=== PATIENT | male | born 1985 | race Caucasian/White ===

== ENCOUNTER 2017-03-29 20:39 | Emergency (ER) | payer SELFPAY ==
[2017-03-29 20:42] VITALS: BP 145/90; PULSE 103; RESP 20; TEMP 98.6; O2SAT 96
--- NOTE | 2017-03-29 22:03 | RADRPT ---
EXAM DATE/TIME: 03/29/2017 21:40 [facility] COMPARISON: No previous studies available for comparison. INDICATIONS : Cough for 1 week. Congestion for 3 days. MEDICAL HISTORY : None. SURGICAL HISTORY : None. ENCOUNTER: Initial ACUITY: 1 week PAIN SCORE: 0/10 LOCATION: Bilateral chest FINDINGS: PA and lateral views of the chest demonstrate the lungs to be symmetrically aerated without evidence of mass, infiltrate or effusion. The cardiomediastinal contours are unremarkable. Osseous structure s are intact. CONCLUSION: No acute cardiopulmonary disease. Leroy Espana MD on March 29, 2017 at 22:01 Board Certified Radiologist. This report was verified electronically.
[2017-03-29] MEDS ORDERED: AUGM875T3 PO (22:49)
--- NOTE | 2017-03-29 22:56 | PD ---
HPI Chief Complaint: Cold / Flu Symptoms Time Seen by Provider: 22:02 Travel History International Travel<30 days: No Contact w/Intl Traveler<30days: No Traveled to known affect area: No History of Present Illness HPI 31-year-old white male presents to emergency Department with complaints of sinus pain and congestion. He states that is been sick now for 3 days. He has had runny nose, congestion, facial tenderness and pain. Positive cough and congestion. Some shortness of breath. History of facial fractures in the past. Patient denies any fever chills. No sore throat, nausea, vomiting, diarrhea or urinary symptoms. PFSH Past Medical History Narrative Medical Left tibia fracture, facial fractures Tetanus Vaccination: < 5 Years Past Surgical History Narrative Surgical Left tibia fracture with IM jennifer. Social History Alcohol Use: Yes Tobacco Use: Yes Allergies-Medications (Allergen,Severity, Reaction): Coded Allergies: Macrolide Antibiotics (Verified Allergy, Unknown, 03/29/17) Reported Meds & Prescriptions Reported Meds & Active Scripts Active Augmentin (Amoxicillin-Clavulanate) 875-125 Mg Tab 1 Tab PO BID Review of Systems Except as stated in HPI: all other systems reviewed are Neg Physical Exam Narrative GENERAL: Well-developed, well-nourished in no apparent distress. Nontoxic appearing. HEAD: Normocephalic, pain on percussion of the frontal and maxillary sinuses. EYES: Pupils equal round and reactive. Extraocular motions intact. No scleral icterus. No injection or drainage. ENT: Nose clear. Throat without erythema, tonsillar hypertrophy or exudate. Uvula midline. Airway patent. NECK: Trachea midline. Supple, nontender, moves head freely. No central bony tenderness or spasm. CARDIOVASCULAR: Regular rate and rhythm without murmurs, gallops, or rubs. RESPIRATORY: Clear to auscultation. Breath sounds equal bilaterally. No wheezes , rales, or rhonchi. GASTROINTESTINAL: Abdomen soft, non-tender, nondistended. No hepato-splenomegaly , or palpable masses. No guarding. EXTREMITIES: No clubbing, cyanosis, or edema. No joint tenderness. BACK: Nontender without deformity. No flank tenderness. NEUROLOGICAL: Awake, alert and oriented x 3 .Cranial nerves grossly intact. Motor and sensory grossly within normal limits. Normal speech. Data Data Last Documented VS Vital Signs Date Time Temp Pulse Resp B/P (MAP) Pulse Ox O2 Delivery O2 Flow Rate FiO2 03/29/17 20:42 98.6 103 20 145/90 (108) 96 Room Air Orders Orders Ct Sinuses W/O Iv Contrast (03/29/17 ) Chest, Pa & Lat (03/29/17 ) Ed Discharge Order (03/29/17 22:49) MDM Medical Decision Making Medical Screen Exam Complete: Yes Emergency Medical Condition: Yes Medical Record Reviewed: Yes Interpretation(s) CT scan of the sinuses: Patient has maxillary and sphenoid sinusitis. Last 24 hours Impressions Chest X-Ray 03/29/17 0000 Signed Impressions: Service Date/Time: Wednesday, March 29, 2017 21:40 - CONCLUSION: No acute cardiopulmonary disease. Leroy Espana MD Differential Diagnosis Differential diagnoses: Sinusitis, bronchitis, pneumonia, pharyngitis Narrative Course X-ray is negative. CT scan reveals sinusitis. Diagnosis Primary Impression: Acute sinusitis Qualified Codes: J01.01 - Acute recurrent maxillary sinusitis Patient Instructions: General Instructions Additional Instructions: Rest. Increase fluids. Afrin nasal spray. Claritin or Zyrtec. Augmentin. Tylenol or Advil for pain. Follow-up with a medical doctor in one week. Return to the ER for emergencies. Med/Other Pt SpecificInfo: Prescription(s) given Scripts Amoxicillin-Clavulanate (Augmentin) 875-125 Mg Tab 1 TAB PO BID for Infection, #20 TAB 0 Refills Prov: Toñito Iglesias MD 03/29/17 Disposition: 01 DISCHARGE HOME Condition: Stable Enrrique Hilton Mar 29, 2017 22:56
--- NOTE | 2017-03-29 23:06 | RADRPT ---
EXAM DATE/TIME: 03/29/2017 21:56 [facility] COMPARISON: No previous studies available for comparison. INDICATIONS : Sinus pain and pressure for 3 days. History of fractures. RADIATION DOSE: 10.07 CTDIvol (mGy) MEDICAL HISTORY : None SURGICAL HISTORY : None. ENCOUNTER: Initial ACUITY: 3 days PAIN SCORE: 4/10 LOCATION: Bilateral facial TECHNIQUE: Volumetric scanning of the paranasal sinuses was performed. Using automated exposure control and adj ustment of the mA and/or kV according to patient size, radiation dose was kept as low as reasonably a chievable to obtain optimal diagnostic quality images. DICOM format image data is available electro nically for review and comparison. FINDINGS: MAXILLARY SINUSES: Mucosal thickening in the maxillary sinuses bilaterally more prominent on the right. There is occlusi on of the right infundibulum/ostiomeatal unit. The left ethmoid infundibulum is narrowed but still pa tent. ETHMOID SINUSES: There is anterior ethmoid sinus disease seen bilaterally. Posterior ethmoid air cells are clear. SPHENOID SINUSES: Normal. No significant mucosal thickening or fluid. Sphenoethmoidal recesses are patent. No bony d ehiscence. FRONTAL SINUSES: There is fracturing of the outer table of the left frontal sinus. This could be chronic. Significant soft tissue swelling is not seen. There is mucosal disease of the inferior medial frontal sinuses elie aterally more prominent right.. NASAL FOSSA: Normal. No septal perforation or deviation. No jerman bullosa or paradoxical turbinates are identifie d. OTHER: Normal. Limited views of the skull base and orbits are unremarkable. CONCLUSION: 1. Mucosal disease at the medial frontal sinuses, anterior ethmoid air cells, and maxillary sinuses b ilaterally. 2. Evidence of prior fracturing at the outer table of the left frontal sinus. Ray Rainey MD on March 29, 2017 at 23:00 Board Certified Radiologist. This report was verified electronically.
== END 2017-03-30 00:57 | disposition home or self-care (01) ==
LOC: NEPD 20:39
DX: J01.01 Acute recurrent maxillary sinusitis (principal); J32.3 Chronic sphenoidal sinusitis; R05 Cough; R06.02 Shortness of breath; Z72.0 Tobacco use; Z88.1 Allergy status to other antibiotic agents
CPT/HCPCS: 70486; 71020; 99284

== ENCOUNTER 2017-06-24 21:36 | Emergency (ER) | payer SELFPAY ==
[~2017-06-24 21:36] MED LIST: AUGM875T3 PO
== END 2017-06-24 22:10 | disposition left against medical advice (07) ==
LOC: NETRI 21:36
DX: F10.129 Alcohol abuse with intoxication, unspecified (principal); Z53.21 Procedure and treatment not carried out due to patient leaving prior to being seen by health care provider
CPT/HCPCS: 99281

== ENCOUNTER 2017-07-14 03:34 | Emergency (ER) | payer OTHER ==
[~2017-07-14] VITALS: Ht 185.4 cm; Wt 84.1 kg
[2017-07-14 03:52] VITALS: BP 115/75; PULSE 82; RESP 16; O2SAT 96
--- NOTE | 2017-07-14 04:26 | PD ---
HPI Chief Complaint: Alcohol/Drug Intoxication Time Seen by Provider: 04:23 Travel History International Travel<30 days: No Contact w/Intl Traveler<30days: No Traveled to known affect area: No History of Present Illness HPI 31-year-old male presents emergency department under a Minor act for alcohol intoxication. Patient states he has been drinking a large amount of alcohol today. He got an argument with the woman he lives with. Please recall. He was in bed when police arrived per his report. He was quite intoxicated. They brought him in for evaluation. Patient denies any acute medical need at this time. [facility] Past Medical History Asthma: Yes Depression: Yes Past Surgical History Tonsillectomy: Yes Social History Alcohol Use: Yes (3 days a week) Tobacco Use: Yes (1/2 ppd) Substance Use: No Allergies-Medications (Allergen,Severity, Reaction): Coded Allergies: Macrolide Antibiotics (Verified Allergy, Unknown, 07/14/17) Reported Meds & Prescriptions Reported Meds & Active Scripts Active Review of Systems ROS Limitations: Intoxication Except as stated in HPI: all other systems reviewed are Neg Physical Exam Exam Limitations: Intoxication Narrative GENERAL: Well-nourished male patient, clinically intoxicated with strong smell of alcohol on his breath and slurred speech but in no acute distress. SKIN: Focused skin assessment warm/dry. HEAD: Atraumatic. Normocephalic. EYES: Pupils equal and round. No scleral icterus. No injection or drainage. ENT: No nasal bleeding or discharge. Mucous membranes pink and moist. NECK: Trachea midline. No JVD. CARDIOVASCULAR: Regular rate and rhythm. No murmur appreciated. RESPIRATORY: No accessory muscle use. Clear to auscultation. Breath sounds equal bilaterally. GASTROINTESTINAL: Abdomen soft, non-tender, nondistended. Hepatic and splenic margins not palpable. MUSCULOSKELETAL: No obvious deformities. No clubbing. No cyanosis. No edema. NEUROLOGICAL: Awake and alert. No obvious cranial nerve deficits. Motor grossly within normal limits. Data Data Last Documented VS Vital Signs Date Time Temp Pulse Resp B/P (MAP) Pulse Ox O2 Delivery O2 Flow Rate FiO2 07/14/17 03:59 (88) 07/14/17 03:52 82 16 96 Room Air MDM Medical Decision Making Medical Screen Exam Complete: Yes Emergency Medical Condition: Yes Medical Record Reviewed: Yes Differential Diagnosis Alcohol intoxication versus substance abuse versus withdrawal Narrative Course 31-year-old male presents emergency department for evaluation under a Minor act. Patient is clinically intoxicated. Vital signs are stable. He is awake and talking to me. He moves all extremities. He will be monitored until he is clinically sober at which time he will be discharged. Diagnosis Primary Impression: Alcohol intoxication Qualified Codes: F10.929 - Alcohol use, unspecified with intoxication, unspecified Referrals: [facility] (Out patient) Additional Instructions: Consume alcohol in moderation Follow-up with a primary care provider Return immediately with any acute worsening symptoms Med/Other Pt SpecificInfo: No Change to Meds Disposition: 01 DISCHARGE HOME Condition: Stable Olive Lopez Jul 14, 2017 04:26
== END 2017-07-14 08:28 | disposition home or self-care (01) ==
LOC: NEDAMB 03:34
DX: F10.129 Alcohol abuse with intoxication, unspecified (principal); F32.9 Major depressive disorder, single episode, unspecified; J45.909 Unspecified asthma, uncomplicated; F17.200 Nicotine dependence, unspecified, uncomplicated
CPT/HCPCS: 99283